=== PATIENT | female | born 1955 | race Caucasian/White ===

== ENCOUNTER → 2018-05-24 | Day surgery (SDC) | payer BC ==
[~2018-05-24] MED LIST: ASTELIN INH; BAYER ASPIRIN PO; BONINE; FEXOFENADINE H180 MG PO; FLONASE16 GM; GLUCAGON FOR INJ 1 MG VIAL ONE; HYDROCHLOROTHIA25 MG PO; HYOSCYAMINE SULFATE 0.5 MG/ML AMP ONE; KETAMINE HCL INJ 50 MG/ML 10 ML VIAL ONE; LASTACAFT3 ML OU; LEVOTHYROXINE88 MCG PO; LIDOCAINE HCL 2% LOCAL INJ 5 ML SDV VIAL INJ ONE; MIDAZOLAM HCL 2 MG/2 ML VIAL ONE; NEXIUM40 MG PO; ONDANSETRON HCL INJ 2 MG/ML VIAL ONE; PROPOFOL IV EMULSION 10 MG/ML 50 ML VIAL ONE; RAMIPRIL5 MG PO
--- NOTE | 2018-05-24 12:26 | Operative Report ---
DATE OF PROCEDURE: May 24, 2018 REFERRING PHYSICIAN: Dr. Rich Brian PROCEDURES PERFORMED 1. Esophagogastroduodenoscopy with biopsies. 2. Colonoscopy with polypectomy. INDICATIONS FOR EGD: Acid reflux. INDICATIONS FOR COLONOSCOPY: Colorectal cancer screening, personal history of colon polyps. MEDICATION: Patient was done under MAC. Please see anesthesiologist's note. PROCEDURE: With the patient in the left lateral decubitus position, the flexible fiberoptic Olympus gastroscope was introduced into the esophagus under direct visualization without any difficulty. There was some patchy erythema noted in the distal esophagus. A minute nodule was noted just above the GE junction that was biopsied. The scope was then advanced with ease into the stomach, traversing a large hiatal hernia measured at 5 cm. The mucosa overlying the antrum and the body revealed some diffuse erythema and low-grade to moderate edema, and biopsies were obtained and sent to stain for H. pylori. Pylorus appeared to be of normal contour and shape. It was intubated with ease, and the scope was advanced all the way to the 2nd portion of the duodenum. The scope was then withdrawn slowly. Mucosa overlying the proximal 2nd portion and the duodenal bulb appeared to be within normal limits. The scope was then withdrawn back into the stomach and retroflexed. The previously described hiatal hernia was also noted in the retroflexed position. The scope was then straightened out. The stomach was decompressed. The scope was subsequently withdrawn. Patient tolerated the procedure well. IMPRESSION 1. Distal esophagitis, mild. 2. Minute nodule, distal esophagus, just above the gastroesophageal junction, biopsied. 3. A 5-cm hiatal hernia. 4. Gastritis, biopsied. Biopsies sent to stain for H. pylori. PLAN: Follow up histology. Continue Nexium 40 mg 1 p.o. q.a.m. a.c. The patient was then turned around. After adequate lubrication of the anal canal, a flexible fiberoptic Olympus colonoscope was inserted into the rectum with ease and advanced all the way to the cecum. One polyp was hot biopsied from the cecum. Two polyps were snared from the ascending colon. Two polyps were snared from the transverse colon. One polyp was snared from the descending colon. Diverticular disease was noted to involve the distal descending and the sigmoid colon. Focal diverticulitis was noted in the sigmoid colon. One polyp was hot biopsied from the sigmoid. One polyp was hot biopsied from the rectum. The scope was then retroflexed into the distal rectum, and small internal hemorrhoids were noted, none of which was actively bleeding. The scope was then straightened out. It was subsequently withdrawn. Patient tolerated the procedure well. IMPRESSION 1. Cecal polyp, hot biopsied. 2. Ascending colon polyps times 2, snared. 3. Transverse colon polyps times 2, snared. 4. Diverticulosis. 5. Descending colon polyp, snared. 6. Sigmoid colon polyp, hot biopsied. 7. Focal diverticulitis, sigmoid colon. 8. Rectal polyp, hot biopsied. 9. Internal hemorrhoids, none actively bleeding. PLAN: Follow up histology. Initiate high-fiber, low-fat diet. Start Flagyl 500 mg 1 p.o. q.i.d. times 10 days and Levaquin 500 mg 1 p.o. daily, number 10. Patient might benefit from a followup colonoscopy in 3 years. Job#: [id number] cc:RICH BRIAN MD
== END | disposition home or self-care (01) ==
LOC: OR 06:27
PROVIDERS: ATTEND Internal Medicine Gastroenterology
DX: K21.0 Gastro-esophageal reflux disease with esophagitis (principal); Z12.11 Encounter for screening for malignant neoplasm of colon; K29.50 Unspecified chronic gastritis without bleeding; K31.9 Disease of stomach and duodenum, unspecified; K44.9 Diaphragmatic hernia without obstruction or gangrene; K63.5 Polyp of colon; D12.0 Benign neoplasm of cecum; D12.4 Benign neoplasm of descending colon; K62.1 Rectal polyp; K57.32 Diverticulitis of large intestine without perforation or abscess without bleeding; K64.8 Other hemorrhoids; I10 Essential (primary) hypertension; G47.33 Obstructive sleep apnea (adult) (pediatric); Z88.5 Allergy status to narcotic agent
CPT/HCPCS: 43239; 45384; 45385; 93005; J1610; J1980; J2001; J2250; J2405; 45378